=== PATIENT | female | born 1985 | race Caucasian/White ===

== ENCOUNTER 2019-01-03 16:11 | Emergency (ER) | payer OTHER ==
[2019-01-03] MEDS ORDERED: Silver Sulfadiazine 1% Crm 50 GM Tube TOP ONE (17:09)
--- NOTE | 2019-01-03 17:17 | EDM.PDOC ---
ED HPI GENERAL MEDICAL PROBLEM - General Chief Complaint: Burn Stated Complaint: BURN TO RIGHT FOOT Time Seen by Provider: 01/03/19 16:17 Source of Information: Reports: Patient History Limitations: Reports: No Limitations - History of Present Illness INITIAL COMMENTS - FREE TEXT/NARRATIVE: HISTORY AND PHYSICAL: History of present illness: Patient is a 33-year-old female presents to the ED today with concern of a few degrees le on the tops of her right toes. Patient states the areas have small blisters that have formed. Patient states this occurred earlier today at work when grease had splattered on her shoe. Patient states she immediately removed her shoe and there are some small burn desai on the top of her dose. Patient states she has full use of foot without any difficulties. Patient denies fever, chills, chest pain, shortness of breath, or cough. Denies headache, neck stiff ness, change in vision, syncope, or near syncope. Denies nausea, vomiting, abdominal pain, diarrhea, constipation, or dysuria. Has not noted any blood in urine or stool. Patient has been eating and drinking appropriately. Review of systems: As per history of present illness and below otherwise all systems reviewed and negative. Past medical history: As per history of present illness and as reviewed below otherwise noncontributory. Surgical history: As per history of present illness and as reviewed below otherwise noncontributory. Social history: See social history for further information Family history: As per history of present illness and as reviewed below otherwise noncontributory. Physical exam: General: Patient is alert, oriented, and in no acute distress. Patient sitting comfortably on exam table. HEENT: Atraumatic, normocephalic, pupils equal and reactive bilaterally, negative for conjunctival pallor or scleral icterus, mucous membranes moist, TMs normal bilaterally, throat clear, neck supple, nontender, trachea midline. No drooling or trismus noted. No meningeal signs. No hot potato voice noted. Lungs: Clear to auscultation, breath sounds equal bilaterally, chest nontender. Heart: S1S2, regular rate and rhythm without overt murmur Abdomen: Soft, nondistended, nontender. Negative for masses or hepatosplenomegaly. Negative for costovertebral tenderness. Pelvis: Stable nontender. Genitourinary: Deferred. Rectal: Deferred. Skin: Intact, warm, dry. No lesions or rashes noted. Extremities: Negative for cords or calf pain. Neurovascular unremarkable. <1% BSA. There are a few scattered partial thickness le to the top of toes on right foot, non circumferential and not involving nailbeds. No areas of open skin. 1-2 (<1cm) blister formation on toe 1 and toe 2. Neuro: Awake, alert, oriented. Cranial nerves II through XII unremarkable. Cerebellum unremarkable. Motor and sensory unremarkable throughout. Exam nonfocal. Notes: Discussed the importance for follow-up with the primary care provider. Voices understanding and is agreeable to plan of care. Denies any further questions or concerns at this time. Diagnostics: None Therapeutics: Silvadene with nonstick sterile dressing Prescription: None Impression: Partial thickness burn of toes, right Plan: 1. Apply cream provided to you today to the area twice daily with dressing changes for the next 2-3 days. Do not pop the blisters as discussed. 2. You can alternate ibuprofen and Tylenol as directed for pain and discomfort. 3. Follow up with her primary care provider as discussed. 4. Return to the ED as needed and as discussed Definitive disposition and diagnosis as appropriate pending reevaluation and review of above. Right Foot Pain Score (Numeric/FACES): 3 - Related Data Allergies Allergy/AdvReac Type Severity Reaction Status Date / Time cephalexin [From Keflex] Allergy Rash Verified 01/03/19 16:48 Penicillins Allergy Rash Verified 01/03/19 16:48 Home Meds: Home Meds Montelukast Sodium [Singulair] 10 mg PO DAILY 01/03/19 [History] metFORMIN [Glucophage XR] 500 mg PO BID 01/03/19 [History] Past Medical History [employer] History: Reports: Polycystic Ovaries - Past Surgical History GI Surgical History: Reports: Cholecystectomy Social & Family History - Family History Family Medical History: Noncontributory - Tobacco Use Smoking Status *Q: Former Smoker Used Tobacco, but Quit: Yes Month/Year Tobacco Last Used: 2008 - Recreational Drug Use Recreational Drug Use: No ED ROS GENERAL - Review of Systems Review Of Systems: ROS reveals no pertinent complaints other than HPI. ED EXAM, BURN/SMOKE INHALATION - Physical Exam Exam: See Below (see dictation) Course - Vital Signs Last Recorded V/S: Last Vital Signs Temp 36.8 C 01/03/19 16:41 Pulse 66 01/03/19 16:41 Resp 18 01/03/19 16:41 BP 137/75 01/03/19 16:41 Pulse Ox 97 01/03/19 16:41 - Orders/Labs/Meds Orders: Active Orders 24 hr Category Date Time Status Communication Order [RC] STAT Care 01/03/19 17:11 Ordered Meds: Medications Discontinued Medications Generic Name Dose Route Start Last Admin Trade Name Eryn PRN Reason Stop Dose Admin Silver Sulfadiazine 50 gm 01/03/19 17:09 Silvadene 1% Cream 50 Gm TOP 01/03/19 17:10 ONETIME ONE Departure - Departure Time of Disposition: 17:16 Disposition: Home, Self-Care 01 Clinical Impression: Burn of toe of right foot Qualifiers: Encounter type: initial encounter Burn degree: partial thickness (2nd degree) Qualified Code(s): T25.231A - Burn of second degree of right toe(s) (nail), initial encounter - Discharge Information Instructions: Burn Care, Adult, [place] Referrals: Eloisa Collier DO [Primary Care Provider] - Additional Instructions: The following information is given to patients seen in the emergency department who are being discharged to home. This information is to outline your options for follow-up care. We provide all patients seen in our emergency department with a follow-up referral. The need for follow-up, as well as the timing and circumstances, are variable depending upon the specifics of your emergency department visit. If you don't have a primary care physician on staff, we will provide you with a referral. We always advise you to contact your personal physician following an emergency department visit to inform them of the circumstance of the visit and for follow-up with them and/or the need for any referrals to a consulting specialist. The emergency department will also refer you to a specialist when appropriate. This referral assures that you have the opportunity for follow-up care with a specialist. All of these measure are taken in an effort to provide you with optimal care, which includes your follow-up. Under all circumstances we always encourage you to contact your private physician who remains a resource for coordinating your care. When calling for follow-up care, please make the office aware that this follow-up is from your recent emergency room visit. If for any reason you are refused follow-up, please contact the [facility] Emergency Department at and asked to speak to the emergency department charge nurse. [facility] [address] [place] [address] [address] 1. Apply cream provided to you today to the area twice daily with dressing changes for the next 2-3 days. Do not pop the blisters as discussed. 2. You can alternate ibuprofen and Tylenol as directed for pain and discomfort. 3. Follow up with her primary care provider as discussed. 4. Return to the ED as needed and as discussed - My Orders Last 24 Hours: My Active Orders 01/03/19 17:11 Communication Order [RC] STAT - Assessment/Plan Last 24 Hours: My Active Orders 01/03/19 17:11 Communication Order [RC] STAT
== END 2019-01-03 17:32 | disposition home or self-care (01) ==
LOC: MW.ED 16:11
DX: T25.231A Burn of second degree of right toe(s) (nail), initial encounter (principal); T31.0 Burns involving less than 10% of body surface; Z87.891 Personal history of nicotine dependence; Z79.899 Other long term (current) drug therapy; Z88.0 Allergy status to penicillin; Z88.1 Allergy status to other antibiotic agents; X12.XXXA Contact with other hot fluids, initial encounter; Y99.0 Civilian activity done for income or pay
CPT/HCPCS: 16020; 99283; A9270

== ENCOUNTER 2019-08-22 09:08 | Emergency (ER) | payer MEDICAID ==
[2019-08-22] MEDS ORDERED: Sodium Chloride 0.9% 1,000 ML IV ONE (09:15)
--- NOTE | 2019-08-22 09:28 | EDM.PDOC ---
ED HPI GENERAL MEDICAL PROBLEM - General Chief Complaint: General Stated Complaint: WEAKNESS Time Seen by Provider: 08/22/19 09:28 Source of Information: Reports: Patient - History of Present Illness INITIAL COMMENTS - FREE TEXT/NARRATIVE: HISTORY AND PHYSICAL: History of present illness: [Presents with dizziness over the last week she was seen initially and sent to OB she is 27 weeks with no fever nausea vomiting chills sweats chest pain shortness breath headache or palpitation no bowel or urine symptoms I can induce dizziness with head turned to the right as well as looking up, clearly a positional component ] Review of systems: As per history of present illness and below otherwise all systems reviewed and negative. Past medical history: As per history of present illness and as reviewed below otherwise noncontributory. Surgical history: As per history of present illness and as reviewed below otherwise noncontributory. Social history: No reported history of drug or alcohol abuse. Family history: As per history of present illness and as reviewed below otherwise noncontributory. Physical exam: HEENT: Atraumatic, normocephalic, pupils reactive, negative for conjunctival pallor or scleral icterus, mucous membranes moist, throat clear, neck supple, nontender, trachea midline. Lungs: Clear to auscultation, breath sounds equal bilaterally, chest nontender. Heart: S1S2, regular, negative for clicks, rubs, or JVD. Abdomen: Soft, nondistended, nontender. Negative for masses or hepatosplenomegaly. Negative for costovertebral tenderness. Pelvis: Stable nontender. Genitourinary: Deferred. Rectal: Deferred. Extremities: Atraumatic, negative for cords or calf pain. Neurovascular unremarkable. Neuro: Awake, alert, oriented. Cranial nerves II through XII unremarkable. Cerebellum unremarkable. Motor and sensory unremarkable throughout. Exam nonfocal. Diagnostics: [CBC CMP UA hCG Nonstress testing ] Therapeutics: phenergan macrobid She will follow up with her OB nurses have schedule appointment for tomorrow Dr. Friend ] Impression: [ 7 weeks with IUP-see nonstress testing GI Mild dehydration Positional vertigo ] Definitive disposition and diagnosis as appropriate pending reevaluation and review of above. headache Pain Score (Numeric/FACES): 8 - Related Data Allergies Allergy/AdvReac Type Severity Reaction Status Date / Time cefdinir [From Omnicef] Allergy Hives Verified 08/22/19 09:15 cephalexin [From Keflex] Allergy Rash Verified 08/22/19 09:15 Penicillins Allergy Rash Verified 08/22/19 09:15 vancomycin Allergy Airway Verified 08/22/19 09:15 Tightness Home Meds: Home Meds Montelukast Sodium [Singulair] 10 mg PO DAILY 01/03/19 [History] Past Medical History [employer] History: Reports: Polycystic Ovaries - Infectious Disease History Infectious Disease History: Reports: Chicken Pox - Past Surgical History GI Surgical History: Reports: Cholecystectomy Social & Family History - Family History Family Medical History: Noncontributory - Tobacco Use Smoking Status *Q: Never Smoker - Recreational Drug Use Recreational Drug Use: No ED ROS GENERAL - Review of Systems Review Of Systems: See Below ED EXAM, GENERAL - Physical Exam Exam: See Below Course - Vital Signs Last Recorded V/S: Last Vital Signs Temp 97.8 F 08/22/19 09:15 Pulse 86 08/22/19 09:15 Resp 18 08/22/19 09:15 BP 134/83 08/22/19 09:15 Pulse Ox 97 08/22/19 09:15 - Orders/Labs/Meds Orders: Active Orders 24 hr Category Date Time Status NST [ Non Stress Test] [RC] PER UNIT ROUTINE Care 08/22/19 09:54 Active CULTURE STREP A CONFIRMATION [RM] Stat Lab 08/22/19 09:23 Results CULTURE URINE [RM] Stat Lab 08/22/19 09:35 Received STREP SCRN A RAPID W CULT CONF [RM] Stat Lab 08/22/19 09:23 Results Labs: Laboratory Tests 08/22/19 08/22/19 08/22/19 Range/Units 09:25 09:25 09:35 WBC 11.78 H (4.0-11.0) K/uL RBC 4.03 L (4.30-5.90) M/uL Hgb 11.7 L (12.0-16.0) g/dL Hct 35.1 L (36.0-46.0) % MCV 87.1 (80.0-98.0) fL MCH 29.0 (27.0-32.0) pg MCHC 33.3 (31.0-37.0) g/dL RDW Std Deviation 41.4 (28.0-62.0) fl RDW Coeff of Kelly 13 (11.0-15.0) % Plt Count 259 (150-400) K/uL MPV 9.40 (7.40-12.00) fL Neut % (Auto) 80.8 H (48.0-80.0) % Lymph % (Auto) 13.0 L (16.0-40.0) % Saline % (Auto) 5.5 (0.0-15.0) % Eos % (Auto) 0.6 (0.0-7.0) % Baso % (Auto) 0.1 (0.0-1.5) % Neut # (Auto) 9.5 H (1.4-5.7) K/uL Lymph # (Auto) 1.5 (0.6-2.4) K/uL Saline # (Auto) 0.7 (0.0-0.8) K/uL Eos # (Auto) 0.1 (0.0-0.7) K/uL Baso # (Auto) 0.0 (0.0-0.1) K/uL Nucleated RBC % 0.0 /100WBC Nucleated RBCs # 0 K/uL Sodium 135 L (136-145) mmol/L Potassium 3.6 (3.5-5.1) mmol/L Chloride 101 (98-107) mmol/L Carbon Dioxide 21.4 (21.0-32.0) mmol/L BUN 7 (7.0-18.0) mg/dL Creatinine 0.6 (0.6-1.0) mg/dL Est Cr Clr Drug Dosing 120.00 mL/min Estimated GFR (MDRD) > 60.0 ml/min Glucose 86 (74-106) mg/dL Calcium 8.6 (8.5-10.1) mg/dL Total Bilirubin 0.2 (0.2-1.0) mg/dL AST 13 L (15-37) IU/L ALT 19 (14-63) IU/L Alkaline Phosphatase 66 (46-116) U/L Total Protein 7.4 (6.4-8.2) g/dL Albumin 2.8 L (3.4-5.0) g/dL Globulin 4.6 H (2.6-4.0) g/dL Albumin/Globulin Ratio 0.6 L (0.9-1.6) Urine Color YELLOW Urine Appearance CLEAR Urine pH 6.5 (5.0-8.0) Ur Specific [place] 1.020 (1.001-1.035) Urine Protein NEGATIVE (NEGATIVE) mg/dL Urine Glucose (UA) NEGATIVE (NEGATIVE) mg/dL Urine Ketones NEGATIVE (NEGATIVE) mg/dL Urine Occult Blood NEGATIVE (NEGATIVE) Urine Nitrite NEGATIVE (NEGATIVE) Urine Bilirubin NEGATIVE (NEGATIVE) Urine Urobilinogen 0.2 (<2.0) EU/dL Ur Leukocyte Esterase SMALL H (NEGATIVE) Urine RBC 0-3 (0-2/HPF) Urine WBC 5-10 (0-5/HPF) Ur Epithelial Cells MODERATE (NONE-FEW) Urine Bacteria 2+ H (NEGATIVE) Meds: Medications Discontinued Medications Generic Name Dose Route Start Last Admin Trade Name Freq PRN Reason Stop Dose Admin Sodium Chloride 1,000 mls @ 999 mls/hr 08/22/19 09:15 08/22/19 09:38 Normal Saline IV 08/22/19 10:15 999 mls/hr STAT ONE Administration Departure - Departure Time of Disposition: 11:03 Disposition: Home, Self-Care 01 Condition: Good Clinical Impression: Vertigo, UTI (urinary tract infection) - Discharge Information Referrals: Adonis Friend MD [Physician] - 08/23/19 8:45 am Forms: ED Department Discharge Additional Instructions: Medication as prescribed Return if symptoms persist or worsen Follow-up with OB as scheduled , appointment provided with Dr. Phuc Johnson [facility] [place] [address] The following information is given to patients seen in the emergency department who are being discharged to home. This information is to outline your options for follow-up care. We provide all patients seen in our emergency department with a follow-up referral. The need for follow-up, as well as the timing and circumstances, are variable depending upon the specifics of your emergency department visit. If you don't have a primary care physician on staff, we will provide you with a referral. We always advise you to contact your personal physician following an emergency department visit to inform them of the circumstance of the visit and for follow-up with them and/or the need for any referrals to a consulting specialist. The emergency department will also refer you to a specialist when appropriate. This referral assures that you have the opportunity for follow-up care with a specialist. All of these measure are taken in an effort to provide you with optimal care, which includes your follow-up. Under all circumstances we always encourage you to contact your private physician who remains a resource for coordinating your care. When calling for follow-up care, please make the office aware that this follow-up is from your recent emergency room visit. If for any reason you are refused follow-up, please contact the [facility] emergency department at and asked to speak to the emergency department charge nurse. Sepsis Event Note - Evaluation Sepsis Screening Result: No Definite Risk - Focused Exam Vital Signs: Vital Signs Temp Pulse Resp BP Pulse Ox 08/22/19 09:15 97.8 F 86 18 134/83 97 Date Exam was Performed: 08/22/19 Time Exam was Performed: 11:03 - My Orders Last 24 Hours: My Active Orders 08/22/19 09:23 CULTURE STREP A CONFIRMATION [RM] Stat STREP SCRN A RAPID W CULT CONF [RM] Stat 08/22/19 09:35 CULTURE URINE [RM] Stat 08/22/19 09:54 NST [ Non Stress Test] [RC] PER UNIT ROUTINE - Assessment/Plan Last 24 Hours: My Active Orders 08/22/19 09:23 CULTURE STREP A CONFIRMATION [RM] Stat STREP SCRN A RAPID W CULT CONF [RM] Stat 08/22/19 09:35 CULTURE URINE [RM] Stat 08/22/19 09:54 NST [ Non Stress Test] [RC] PER UNIT ROUTINE
[2019-08-22 10:25] LABS: BLOOD UREA NITROGEN,BUN 7 mg/dL (7.0-18.0); CARBON DIOXIDE,CO2 21.4 mmol/L (21.0-32.0); CHLORIDE,CL 101 mmol/L (98-107); GLUCOSE RANDOM 86 mg/dL (74-106); POTASSIUM,K 3.6 mmol/L (3.5-5.1); SODIUM,NA 135 mmol/L (136-145)
== END 2019-08-22 11:16 | disposition home or self-care (01) ==
LOC: MW.ED 09:08
DX: O99.351 Diseases of the nervous system complicating pregnancy, first trimester (principal); H81.10 Benign paroxysmal vertigo, unspecified ear; O23.41 Unspecified infection of urinary tract in pregnancy, first trimester; O99.281 Endocrine, nutritional and metabolic diseases complicating pregnancy, first trimester; E86.0 Dehydration; Z88.1 Allergy status to other antibiotic agents; Z88.0 Allergy status to penicillin; Z3A.01 Less than 8 weeks gestation of pregnancy
CPT/HCPCS: 36415; 80053; 81001; 85025; 87081; 87086; 87804; 87880; 96360; 99284; J7030; 99283

== ENCOUNTER 2019-09-06 21:26 | Emergency (ER) | payer MEDICAID ==
[2019-09-06 22:47] LABS: BLOOD UREA NITROGEN,BUN 5 mg/dL (7.0-18.0); CARBON DIOXIDE,CO2 24.7 mmol/L (21.0-32.0); CHLORIDE,CL 102 mmol/L (98-107); GLUCOSE RANDOM 80 mg/dL (74-106); POTASSIUM,K 3.6 mmol/L (3.5-5.1); SODIUM,NA 137 mmol/L (136-145)
== END 2019-09-07 01:40 | disposition left against medical advice (07) ==
LOC: MW.ED 21:26
DX: Z53.21 Procedure and treatment not carried out due to patient leaving prior to being seen by health care provider (principal)
CPT/HCPCS: 36415; 80053; 81003; 85025

== ENCOUNTER 2019-09-12 10:53 | Emergency (ER) | payer MEDICAID ==
[2019-09-12] MEDS ORDERED: Metoclopramide 10 MG/2 ML SDV IVPUSH ONE (11:50)
[2019-09-12] MEDS ORDERED: Sodium Chloride 0.9% 1,000 ML IV ONE (11:50)
[2019-09-12] MEDS ORDERED: diphenhydrAMINE 50 MG/ML SDV IVPUSH ONE (11:50)
[2019-09-12] MEDS ORDERED: Acetaminophen 1,000 MG in Premix Bag 1 BAG IV ONE (11:50)
[2019-09-12] MEDS ORDERED: Acetaminophen 500 MG Tab PO ONE (12:05)
[2019-09-12 13:10] LABS: BLOOD UREA NITROGEN,BUN 6 mg/dL (7.0-18.0); CARBON DIOXIDE,CO2 26.8 mmol/L (21.0-32.0); CHLORIDE,CL 103 mmol/L (98-107); GLUCOSE RANDOM 87 mg/dL (74-106); POTASSIUM,K 4.4 mmol/L (3.5-5.1); SODIUM,NA 137 mmol/L (136-145)
--- NOTE | 2019-09-12 15:40 | MR ---
MRI brain Technique: Multiple axial sections through the brain were obtained. Intravenous contrast was not utilized. Technique: T1 sagittal; T1 coronal; T1, T2, FLAIR and diffusion axial Findings: Normal signal void is seen within the sagittal sinus and transverse sinus. Slight mucosal thickening, most likely representing retention cyst is noted within the right maxillary sinus measuring 1.6 cm. Ventricles along with basal cisterns and sulci over convexities are within normal limits. No abnormal signal is seen within the brain parenchyma. No midline shift or mass effect is appreciated. No acute diffusion abnormalities are seen. Impression: 1. Small retention cyst within right maxillary sinus. 2. Other portions of the MRI study the brain appear unremarkable. No acute abnormality is appreciated. Diagnostic code #2 This report was dictated in [place] Standard Time
--- NOTE | 2019-09-12 16:07 | EDM.PDOC ---
ED [facility] GENERAL MEDICAL PROBLEM - General Chief Complaint: Headache Stated Complaint: OB COMPLICATIONS Time Seen by Provider: 09/12/19 11:00 - History of Present Illness INITIAL COMMENTS - FREE TEXT/NARRATIVE: HPI 34-year-old at ~30 weeks gestation presents for evaluation of one month of poorly characterized waxing and waning headache that is predominant frontal and new in nature (patient reports a very minor headache history), accompanied by poorly characterized sensation of movement (patient describes as dizziness, vertigo). As with a clearly identifiable provoking or relieving factors. * Denies changes in vision or hearing, fevers, neck stiffness, rashes, neck pain , temporal pain, jaw pain with chewing, dental pain, minor neck trauma, chiropractic manipulation, or head trauma. * Denies anticoagulation or hypercoaguable history. * No family members with similar symptoms. CO detectors in house. Unable to identify any higher risk exposures to possible carbon monoxide. 1. OB US 08/30/19: normal cervical length at 4.1 cm with close internal officer. Fetus is a [place] line. 2. ED 09/06/19: patient presented with a cc dizziness for ~1 month. 3. ED 08/22/19: patient with poorly characterize headache and vertiginous symptoms, appears to have improved with IV hydration. Patient discharged with treatment instructions for UTI. M/S/F/SocHx notable for: please see HPI; remainder reviewed with patient and in chart. ROS: Negative constitutional, eye, cardiovascular, pulmonary, GI, , MSK, skin , neurologic, psychiatric, endocrine unless noted in the HPI. Exam HR 89, RR 20, BP 114/62, T 36.7C, SaO2 97% on room air. Gen: Pleasant, non-toxic appearing, resting comfortably. HEENT: NC, AT, TMs clear bilaterally without effusions, erythema, or lesions, preauricular, pinna, and external canal skin without lesions. Dentition intact without visible caries. No frontal or maxillary sinus TTP. Temples without TTP bilaterally, equal 2+ temporal artery pulses. No paraspinal posterior neck pain. Resp: clear to auscultation bilaterally. Card: RRR GI: NT/ND : Deferred MSK: No visible deformities, strength and tone WNL. Skin: Normal color with no visible lesions. Neuro: alert and oriented 3, no facial asymmetry, no gaze preference, no slurring of speech. CN II-III: pupils equal and reactive (->2mm bilaterally); III, IV, : EOMI, V1-V3: sensation to touch bilaterally intact; VII: no facial asymmetry (frown / smile); VIII: no nystagmus; X: phonation intact, uvula midline; XI: trapezius 5/5 bilaterally, XII: tongue midline. Psych: Mood and affect appropriate. Labs / Imaging (pertinent): WBC 9.6, HB 11.2, d-dimer 0.56, sodium 137, potassium 4.4, AST 19, ALT 22, alkaline phosphatase 83. EKG: SR 70 bpm, no ST segment elevations or depressions, no LBBB. DC 134 ms, QRS 90 ms, QTc 422 ms. MRI brain: small retention cyst within right maxillary sinus. MDM Previous chart, nursing note, and vitals reviewed. A: 34-year-old at ~30 weeks gestation presents for evaluation of one month of poorly characterized waxing and waning headache that is predominant frontal and new in nature (patient reports a very minor headache history), accompanied by poorly characterized sensation of movement (patient describes as dizziness, vertigo). DDx: migraine / tension headache, cluster headache, sentinel bleed/SAH, infection (OFFICE AGENT vs FIORE secondary to non-OFFICE AGENT focal infection), tumor/mass effect, hypertensive encephalopathy, glaucoma or iritis, idiopathic intracranial hypertension, cavernous sinus thrombosis, temporal arteritis. Evaluation: * Migraine / tension headache - suspect a migraine given the consistency of symptoms with prior headaches and the relative exclusion of the remainder of the differential. * Cluster - doubt cluster headache given the absence of unilateral symptoms, eye watering, swelling, or nasal congestion. * [place]way bleed/SAH - Doubt given gradual onset. Furthermore imaging is unremarkable. * Infection - Given lack of rash, meningismus, or fever; doubt meningitis. Similarly the history and exam are without evidence of acute otitis media, sinusitis, dental abscesses or clinically significant dental caries. * Mass - no evidence by imaging. * Hypertensive encephalopathy - BP within the brain's autoregulatory zone. * Glaucoma or iritis - As the patient is without reported vision changes, eye pain, and an occular exam without increases in pain on pupillary constriction further evaluation was not pursued. * Idiopathic Intracranial Hypertension - unlikely given the lack of visual symptoms, short duration of symptoms, lack of worsening with valsalva, or more prominent morning symptoms. [* Thrombosis - patient felt to be low to moderate pretest probability, a d- dimer was obtained, while this was mildly elevated is unclear if this is secondary to gestation versus reflecting an intracranial thrombosis, subsequent MRI (requested MRI/MRV) without evidence of abnormality. As such consider this to be effectively excluded. * Temporal Arteritis - given lack of temporally localized headache, temporal tenderness or decreased temporal artery pulse, absent history of jaw claudication or vision changes; doubt. * Preeclampsia - blood pressure within acceptable limits, no features consistent with preeclampsia. ED Course: 1 L NS, 25 mg diphenhydramine, 10 mg Reglan, and 1 g acetaminophen given for headache treatment. Patient with significant improvement. Disposition: discharge with [facility] follow-up recommended. Impression: headache, lightheadedness. headache Pain Score (Numeric/FACES): 5 - Related Data Allergies Allergy/AdvReac Type Severity Reaction Status Date / Time cefdinir [From Omnicef] Allergy Hives Verified 09/12/19 11:00 cephalexin [From Keflex] Allergy Rash Verified 09/12/19 11:00 Penicillins Allergy Rash Verified 09/12/19 11:00 vancomycin Allergy Airway Verified 09/12/19 11:00 Tightness Home Meds: Home Meds Mv-Mn/Iron/FA/Herbal/Digestive [ One Tablet] 1 tab PO DAILY 09/06/19 [ History] Past Medical History HEENT History: Reports: None Cardiovascular History: Reports: None Respiratory History: Reports: None Genitourinary History: Reports: None [facility] History: Reports: Polycystic Ovaries Musculoskeletal History: Reports: None Psychiatric History: Reports: None Endocrine/Metabolic History: Reports: None Hematologic History: Reports: None Dermatologic History: Reports: None - Infectious Disease History Infectious Disease History: Reports: Chicken Pox, Shingles - Past Surgical History GI Surgical History: Reports: Cholecystectomy Social & Family History - Family History Family Medical History: Noncontributory - Tobacco Use Smoking Status *Q: Never Smoker - Caffeine Use Caffeine Use: Reports: Coffee - Recreational Drug Use Recreational Drug Use: No ED ROS GENERAL - Review of Systems Review Of Systems: See Below ED EXAM, GENERAL - Physical Exam Exam: See Below Course - Vital Signs Last Recorded V/S: Last Vital Signs Temp 36.7 C 09/12/19 10:56 Pulse 86 09/12/19 13:40 Resp 16 09/12/19 13:40 BP 133/76 09/12/19 13:40 Pulse Ox 97 09/12/19 13:40 - Orders/Labs/Meds Orders: Active Orders 24 hr Category Date Time Status EKG Documentation Completion [RC] STAT Care 09/12/19 11:50 Active Labs: Laboratory Tests 09/12/19 09/12/19 09/12/19 Range/Units 12:20 12:20 12:20 WBC 9.57 (4.0-11.0) K/uL RBC 3.89 L (4.30-5.90) M/uL Hgb 11.2 L (12.0-16.0) g/dL Hct 34.1 L (36.0-46.0) % MCV 87.7 (80.0-98.0) fL MCH 28.8 (27.0-32.0) pg MCHC 32.8 (31.0-37.0) g/dL RDW Std Deviation 41.4 (28.0-62.0) fl RDW Coeff of Kelly 13 (11.0-15.0) % Plt Count 260 (150-400) K/uL MPV 9.60 (7.40-12.00) fL Neut % (Auto) 77.3 (48.0-80.0) % Lymph % (Auto) 15.0 L (16.0-40.0) % [place]well % (Auto) 7.0 (0.0-15.0) % Eos % (Auto) 0.6 (0.0-7.0) % Baso % (Auto) 0.1 (0.0-1.5) % Neut # (Auto) 7.4 H (1.4-5.7) K/uL Lymph # (Auto) 1.4 (0.6-2.4) K/uL [place] # (Auto) 0.7 (0.0-0.8) K/uL Eos # (Auto) 0.1 (0.0-0.7) K/uL Baso # (Auto) 0.0 (0.0-0.1) K/uL Nucleated RBC % 0.0 /100WBC Nucleated RBCs # 0 K/uL D-Dimer, Quantitative 0.56 H (0.0-0.50) mg/L FEU Sodium 137 (136-145) mmol/L Potassium 4.4 (3.5-5.1) mmol/L Chloride 103 (98-107) mmol/L Carbon Dioxide 26.8 (21.0-32.0) mmol/L BUN 6 L (7.0-18.0) mg/dL Creatinine 0.5 L (0.6-1.0) mg/dL Est Cr Clr Drug Dosing 144.00 mL/min Estimated GFR (MDRD) > 60.0 ml/min Glucose 87 (74-106) mg/dL Calcium 9.4 (8.5-10.1) mg/dL Magnesium 2.0 (1.8-2.4) mg/dL Total Bilirubin 0.1 L (0.2-1.0) mg/dL AST 19 (15-37) IU/L ALT 22 (14-63) IU/L Alkaline Phosphatase 83 (46-116) U/L Total Protein 7.5 (6.4-8.2) g/dL Albumin 2.7 L (3.4-5.0) g/dL Globulin 4.8 H (2.6-4.0) g/dL Albumin/Globulin Ratio 0.6 L (0.9-1.6) Meds: Medications Discontinued Medications Generic Name Dose Route Start Last Admin Trade Name Freq PRN Reason Stop Dose Admin Acetaminophen 1,000 mg 09/12/19 12:05 09/12/19 12:33 Tylenol Extra Strength PO 09/12/19 12:06 1,000 mg ONETIME ONE Administration Diphenhydramine HCl 25 mg 09/12/19 11:50 09/12/19 12:26 Benadryl IVPUSH 09/12/19 11:51 25 mg ONETIME ONE Administration Acetaminophen 1,000 mg/ Premix 100 mls @ 400 mls/hr 09/12/19 11:50 09/12/19 12:06 IV 09/12/19 12:04 Not Given NOW ONE Sodium Chloride 1,000 mls @ 1,000 mls/hr 09/12/19 11:50 09/12/19 12:17 Normal Saline IV 09/12/19 12:49 1,000 mls/hr .Bolus ONE Administration Metoclopramide HCl 10 mg 09/12/19 11:50 09/12/19 12:28 Reglan IVPUSH 09/12/19 11:51 10 mg ONETIME ONE Administration Departure - Departure Time of Disposition: 16:06 Disposition: Home, Self-Care 01 Clinical Impression: Headache - Discharge Information Referrals: PCP,Unobtain [Primary Care Provider] - Additional Instructions: You were in seen in the [facility] Emergency Department for evaluation of a headache and lightheadedness. At the time of your evaluation no significant abnormalities were noted. Please follow- up with your [facility]ER within 48 hours. Please read and follow all of the instructions below. Please follow up with your primary care physician as needed. When calling for follow-up care, please make the office aware that this follow-up is from your recent emergency room visit. If for any reason you are refused follow-up, please contact the [facility] Emergency Department at and asked to speak to the emergency department charge nurse. Your care today was limited to identifying and treating emergent medical problems only. Many people have subtle differences in their test results that require follow up with their outpatient physician(s) to correctly determine if this represents a normal variation or concerning abnormality with respect to your specific health. The care given to you today was limited to identifying and treating emergent medical problems - you need to request a copy of all of your medical records from today's visit and follow up with your outpatient physician(s) to review both today's visit and your overall health. If you have any new symptoms or if you are at all concerned about your health please return immediately to the emergency department. Prescriptions: If you are uninsured or have financial difficulties with filling your prescription(s), you may consider using a free pharmacy discount service such as [employer] ([employer]) or [employer] ([employer]). These services allow you to search for a medication on your phone (or computer) and obtain a coupon that usually has a significant discount from the list coronado at a pharmacy. Your physician as well as [facility] does not have a financial relationship with either of these services. You may also wish to speak with your physician to determine if lower cost prescriptions are possible. Obtaining primary care: 1. [facility] provides pediatrics (children), family medicine (children, adults, and some obstetrical care), and internal medicine (adults). Further specialty care is also available. Same day appointments are available. They may be contacted at [phone] and are open Reinaldo through Monday 8 AM to 5 PM. The [facility] are located at [facility], [address], [place] [address]. 2. [facility] offers family medicine, internal medicine, [facility], and further specialty care. [facility] may be contacted at [phone]. [facility] is located at [address] [facility] [address]. 3. If you have health insurance, please also contact your insurer for a list of accepting providers under your policy, you may contact these providers for further health care. Occupational health: Work related injuries may consider following up with [facility], . Occupational health services are located at [facility] [address] [place] [address] and are open Monday through Monday from 7: 30 am to 5:00 pm. Obstetrical and Gynecological Care: [facility], , Monday through Monday 8 AM to [address] [place] [address]. Eyecare: If you have an eye injury you should follow up with your second worker or with [facility], at [phone] or [phone] , they are located at [address] [place] [address]. Dental Care Flakito Lau DDS. [address] [facility], [place], [place]. Ph. [phone] Colton Lau DDS MS. [address] [facility] [address], [place], [place]. Ph. Jet Mills DDS. 10 09/[address] [place] [address]. Ph. [phone] Paul Malik DDS. [address] [facility] [address] [place], [place]. Ph. [phone] Flako Mullins DDS PC. [address] [place], [place]. Ph. [phone] Valeri Kobe Keshav DDS. [address] [facility]. Ph. [phone] [facility]. [address] [place], [place]. Ph. [phone] [facility]. [address], [place]. Ph. [phone] [facility] [address] [place] [address]. Ph. [phone] [facility]. [address] [place] [address] [address] [place], [place]. Ph. [facility]. [address], [place]. Ph. [phone] Headache You were seen in the emergency department for evaluation and treatment of a headache. There are many causes for headaches. Most are painful but do not threaten your health. However there are some types of headaches that can be life threatening. Please return to the emergency department if you develop any of the following: * Your headache worsens, becomes severe, or you have nausea or vomiting. * Fever greater than 100.5 degrees Fahrenheit. * You have neck stiffness. * Changes in vision or hearing. * You have new weakness, numbness, or decreased sensation. * You have dizziness or difficulty walking * You feel faint or like you will pass out. Please follow up with your primary care doctor if your symptoms continue or do not improve. If you have recurrent headaches, your primary care physician may be able to prescribe medications that abort headaches or refer you to a neurologist for further evaluation and work up of your headaches. Home care instructions: * Keep all follow-up appointments with your caregiver or any specialist referral. * Lie down in a dark, quiet room when you have a headache. Keep a headache journal to find out what may trigger your migraine headaches. For example, write down: * What you eat and drink. * How much sleep you get. * Any change to your diet or medicines. * Try massage or other relaxation techniques. * Put ice packs or heat on the head and neck. Use these 3 to 4 times per day for 15 to 20 minutes each time, or as needed. * Limit stress. * Sit up straight, and do not tense your muscles. * Quit smoking if you smoke. * Limit alcohol use. * Decrease the amount of caffeine you drink, or stop drinking caffeine. * Eat and sleep on a regular schedule. * Get 7 to 9 hours of sleep, or as recommended by your caregiver. * Keep lights dim if bright lights bother you and make your headaches worse. You make take over the counter Acetaminophen (Tylenol) and Ibuprofen (Motrin or Aleve) as directed below for relief of pain. * Take 600 mg of ibuprofen (three 200 mg tablets) with a glass of water every 6- 8 hours as needed for pain or fever. Do not take if , allergic to ibuprofen, or if you have severe kidney disease. * Take 1,000 mg of acetaminophen (two 500 mg tablets) with a glass of water every 6-8 hours as needed for pain. Do not take up allergic to acetaminophen. If you have liver disease do not take more than 2000 mg in 24 hours. * You can take these medications at the same time or on separate schedules. * Do not take for more than 10 days. * Do not take with alcohol or other acetaminophen containing medications. * This medication may cause a mildly upset stomach, if so take it with a small snack. Stop taking it if you have persistent abdominal pain, heartburn, or any stomach pain. Do not take this medication if you have known ulcers. * Please read the warnings at the end of this document regarding these medications. IBUPROFEN WARNING: This drug may infrequently cause serious (rarely fatal) bleeding from the stomach or intestines. Also, related drugs rarely have caused blood clots to form, resulting in heart attacks and strokes. This medication might also rarely cause similar problems. Talk to your doctor or pharmacist about the benefits and risks of treatment, as well as other possible medication choices. If you notice any of the following rare but very serious side effects, stop taking ibuprofen and seek immediate medical attention: black stools, persistent stomach/abdominal pain, vomit that looks like coffee grounds, chest pain, weakness on one side of the body, sudden vision changes, slurred speech. IBUPROFEN SIDE EFFECTS: Upset stomach, nausea, vomiting, heartburn, headache, diarrhea, constipation, drowsiness, and dizziness may occur. If any of these effects persist or worsen, notify your doctor or pharmacist promptly. If your doctor has directed you to use this medication, remember that he or she has judged that the benefit to you is greater than the risk of side effects. Many people using this medication do not have serious side effects. Tell your doctor immediately if any of these serious side effects occur: stomach pain, swelling of the hands or feet, sudden or unexplained weight gain, ringing in the ears ( tinnitus). Tell your doctor immediately if any of these unlikely but serious side effects occur: vision changes, rapid or pounding heartbeat, easy bruising or bleeding, difficult/painful swallowing. Tell your doctor immediately if any of these highly unlikely but very serious side effects occur: change in amount of urine, severe headache, very stiff neck, mental/mood changes, persistent sore throat or fever. This drug may rarely cause serious (possibly fatal) liver disease. If you notice any of the following highly unlikely but very serious side effects, stop taking ibuprofen and consult your doctor or pharmacist immediately: yellowing eyes and skin, dark urine, unusual/extreme tiredness. An allergic reaction to this drug is unlikely, but seek immediate medical attention if it occurs. Symptoms of an allergic reaction include: rash, itching/ swelling (especially of the face/tongue/throat), severe dizziness, trouble breathing. This is not a complete list of possible side effects. ACETAMINOPHEN SIDE EFFECTS: This drug usually has no side effects. If you do not have liver problems, the maximum dose of acetaminophen for adults is 4 grams per day (4000 milligrams). Taking more than the maximum daily amount may cause serious (possibly fatal) liver damage. Get medical help right away if you have any of the following symptoms of liver damage: persistent nausea/vomiting, extreme tiredness, stomach/abdominal pain, yellowing eyes/skin, dark urine. If you have liver problems, consult your doctor or pharmacist for a safe dosage of this medication. A very serious allergic reaction to this drug is rare. However , get medical help right away if you notice any symptoms of a serious allergic reaction, including: rash, itching/swelling (especially of the face/tongue/ throat), severe dizziness, trouble breathing. This is not a complete list of possible side effects. If you notice other effects not listed above, contact your doctor or pharmacist. DRUG INTERACTIONS: Your healthcare professionals (e.g., doctor or pharmacist) may already be aware of any possible drug interactions and may be monitoring you for it. Do not start, stop or change the dosage of any medicine before checking with them first. This drug should not be used with the following medications because very serious interactions may occur: cidofovir, ketorolac. If you are currently using any of these medications listed above, tell your doctor or pharmacist before starting ibuprofen. Before using this medication, tell your doctor or pharmacist of all prescription and nonprescription/herbal products you may use, especially of: anti-platelet drugs (e.g., cilostazol, clopidogrel), oral bisphosphonates (e.g., alendronate), other medications for arthritis (e.g., aspirin, methotrexate), "blood thinners" (e.g., enoxaparin, heparin, warfarin), corticosteroids (e.g., prednisone), cyclosporine, desmopressin, high blood pressure drugs (including JOCELYN inhibitors such as captopril, angiotensin II receptor antagonists such as losartan, and beta- blockers such as metoprolol), lithium, pemetrexed, "water pills" (diuretics such as furosemide, hydrochlorothiazide, triamterene). Check all prescription and nonprescription medicine labels carefully for other pain/fever drugs ( NSAIDs such as aspirin, celecoxib, naproxen). These drugs are similar to ibuprofen, so taking one of these drugs while also taking ibuprofen may increase your risk of side effects. Consult your doctor or pharmacist for more details. However, if your doctor has prescribed low doses of aspirin to prevent heart attack or stroke (usually at dosages of 81-325 milligrams a day), you should continue to take the aspirin. Daily use of ibuprofen may decrease aspirin 's ability to prevent heart attack/stroke. Talk to your doctor about using a different medication (e.g., acetaminophen) to treat pain/fever. If you must take ibuprofen, talk to your doctor about possibly taking immediate-release aspirin (not enteric-coated) while also taking the ibuprofen dose apart from your aspirin dose. Do not increase your daily dose of aspirin or change the way you take aspirin/other medications without your doctor's approval. This document does not contain all possible interactions. Therefore, before using this product, tell your doctor or pharmacist of all the products you use. Keep a list of all your medications with you, and share the list with your doctor and pharmacist. Sepsis Event Note - Evaluation Sepsis Screening Result: No Definite Risk - Focused Exam Vital Signs: Vital Signs Temp Pulse Resp BP Pulse Ox 09/12/19 13:40 86 16 133/76 97 09/12/19 10:56 36.7 C 89 20 114/62 97 Date Exam was Performed: 09/12/19 Time Exam was Performed: 16:06 - My Orders Last 24 Hours: My Active Orders 09/12/19 11:50 EKG Documentation Completion [RC] STAT - Assessment/Plan Last 24 Hours: My Active Orders 09/12/19 11:50 EKG Documentation Completion [RC] STAT
== END 2019-09-12 16:36 | disposition home or self-care (01) ==
LOC: MW.ED 10:53
DX: R51 Headache (principal); R42 Dizziness and giddiness; Z88.1 Allergy status to other antibiotic agents; Z88.0 Allergy status to penicillin
CPT/HCPCS: 36415; 70551; 80053; 83735; 85025; 85379; 93005; 99284; A9270; J1200; J2765; J7030

== ENCOUNTER 2019-09-24 10:00 | Emergency (ER) | payer MEDICAID ==
--- NOTE | 2019-09-24 10:12 | EDM.PDOC ---
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 She states for the past month she has had dizziness. She reports having dizziness all the time but is worse with certain activity. She states when the dizziness gets worse, she gets a headache and occasional pain behind her left eye. She states having "milky/hazy" vision at times. She has been seen for this in the past but states she was told it was anxiety. She reports going to [facility] [place] after her symptoms were "dismissed by her OB " and she was told that her cervix was "dilated and softened but baby had not dropped." She was placed on bedrest by her OB. She states her symptoms are worsening. She had also had episodes of fainting and she also notes her blood pressure being occasionally elevated but states it doesn't stay elevated. Patient states she is also having abdominal cramping and light spotting, she states this has been going on for a couple of weeks at least. She was seen on 09/12/2019 and had a work up with unremarkable labs and a negative brain MRI. Review of systems: As per history of present illness and below otherwise all systems reviewed and negative. Past medical history: As per history of present illness and as reviewed below otherwise noncontributory. Surgical history: As per history of present illness and as reviewed below otherwise noncontributory. Social history: No reported history of drug or alcohol abuse. Family history: As per history of present illness and as reviewed below otherwise noncontributory. Physical exam: General: Patient sitting comfortably in no acute distress and nontoxic appearing HEENT: Atraumatic, normocephalic, pupils reactive, negative for conjunctival pallor or scleral icterus, mucous membranes moist, throat clear, neck supple, nontender, trachea midline. No meningeal signs. Lungs: Clear to auscultation, breath sounds equal bilaterally, chest nontender. Heart: S1S2, regular, negative for clicks, rubs, or overt murmur. Abdomen: Gravid uterus. Soft, nondistended, nontender. Negative for masses or hepatosplenomegaly. Negative for costovertebral tenderness. No rigidity, rebound , guarding. Pelvis: Stable nontender. Genitourinary: Deferred. Rectal: Deferred. Extremities: Atraumatic, negative for cords or calf pain. Neurovascular unremarkable. Neuro: Awake, alert, oriented. Cranial nerves II through XII unremarkable. Cerebellum unremarkable. Motor and sensory unremarkable throughout. Exam nonfocal. Notes: Diagnostics: [employer]: [] Prescriptions: Impression: Headache/blurred vision/cramping in third trimester Plan: Patient to OB for further evaluation and NST. Definitive disposition and diagnosis as appropriate pending reevaluation and review of above. Left Headache Pain Score (Numeric/FACES): 4 - Related Data Allergies Allergy/AdvReac Type Severity Reaction Status Date / Time cefdinir [From Omnicef] Allergy Hives Verified 09/24/19 10:08 cephalexin [From Keflex] Allergy Rash Verified 09/24/19 10:08 Penicillins Allergy Rash Verified 09/24/19 10:08 vancomycin Allergy Airway Verified 09/24/19 10:08 Tightness Home Meds: Home Meds Mv-Mn/Iron/FA/Herbal/Digestive [ One Tablet] 1 tab PO DAILY 09/06/19 [ History] Past Medical History HEENT History: Reports: None Cardiovascular History: Reports: None Respiratory History: Reports: None Genitourinary History: Reports: None TAG CLERK History: Reports: Polycystic Ovaries Musculoskeletal History: Reports: None Psychiatric History: Reports: None Endocrine/Metabolic History: Reports: None Hematologic History: Reports: None Dermatologic History: Reports: None - Infectious Disease History Infectious Disease History: Reports: Chicken Pox, Shingles - Past Surgical History GI Surgical History: Reports: Cholecystectomy Social & Family History - Family History Family Medical History: Noncontributory - Caffeine Use Caffeine Use: Reports: Coffee ED ROS GENERAL - Review of Systems Review Of Systems: Comprehensive ROS is negative, except as noted in HPI. ED EXAM, GI/ABD - Physical Exam Exam: See Below (see dictation) Course - Vital Signs Last Recorded V/S: Last Vital Signs Temp 98.0 F 09/24/19 10:05 Pulse 76 09/24/19 10:05 Resp 18 09/24/19 10:05 BP 154/71 H 09/24/19 10:05 Pulse Ox 99 09/24/19 10:05 - Orders/Labs/Meds Orders: Active Orders 24 hr Category Date Time Status CULTURE URINE [RM] Stat Lab 09/24/19 10:31 Received Labs: Laboratory Tests 09/24/19 Range/Units 10:31 Urine Color YELLOW Urine Appearance SLT CLOUDY Urine pH 6.0 (5.0-8.0) Ur Specific [place] 1.020 (1.001-1.035) Urine Protein NEGATIVE (NEGATIVE) mg/dL Urine Glucose (UA) NEGATIVE (NEGATIVE) mg/dL Urine Ketones NEGATIVE (NEGATIVE) mg/dL Urine Occult Blood NEGATIVE (NEGATIVE) Urine Nitrite NEGATIVE (NEGATIVE) Urine Bilirubin NEGATIVE (NEGATIVE) Urine Urobilinogen 0.2 (<2.0) EU/dL Ur Leukocyte Esterase SMALL H (NEGATIVE) Urine RBC 0-1 (0-2/HPF) Urine WBC 1-3 (0-5/HPF) Ur Epithelial Cells FEW (NONE-FEW) Urine Bacteria FEW (NEGATIVE) Departure - Departure Time of Disposition: 10:57 Disposition: Still A Patient 30 Condition: Good Clinical Impression: Headache, Abdominal pain in - Discharge Information Forms: ED Department Discharge Sepsis Event Note - Focused Exam Vital Signs: Vital Signs Temp Pulse Resp BP Pulse Ox 09/24/19 10:05 98.0 F 76 18 154/71 H 99 Date Exam was Performed: 09/24/19 Time Exam was Performed: 10:57 - My Orders Last 24 Hours: My Active Orders 09/24/19 10:31 CULTURE URINE [RM] Stat - Assessment/Plan Last 24 Hours: My Active Orders 09/24/19 10:31 CULTURE URINE [RM] Stat
== END 2019-09-24 10:40 | disposition still patient (30) ==
LOC: MW.ED 10:00
DX: O99.89 Other specified diseases and conditions complicating pregnancy, childbirth and the puerperium (principal); R51 Headache; R10.9 Unspecified abdominal pain; Z88.1 Allergy status to other antibiotic agents; Z88.0 Allergy status to penicillin; Z88.8 Allergy status to other drugs, medicaments and biological substances; Z3A.32 32 weeks gestation of pregnancy
CPT/HCPCS: 81001; 87086; 99283; 99285

== ENCOUNTER 2019-10-22 23:58 | Inpatient (IN) | payer MEDICAID ==
[2019-10-23] MEDS ORDERED: Sodium Chloride 0.9% 10 ML SDV IV PRN (01:04)
[2019-10-23] MEDS ORDERED: Lidocaine 1% 50 ML MDV INJECT PRN (01:04)
[2019-10-23] MEDS ORDERED: Butorphanol 1 MG/ML SDV IVPUSH PRN (01:04)
[2019-10-23] MEDS ORDERED: Sodium Chloride 0.9% 10 ML Syringe FLUSH PRN (01:04)
[2019-10-23] MEDS ORDERED: Nalbuphine 10 MG/1 ML Vial IVPUSH PRN (01:04)
[2019-10-23] MEDS ORDERED: Methylergonovine 0.2 MG/1 ML Amp IM PRN (01:04)
[2019-10-23] MEDS ORDERED: Water For Irrigation,Sterile 1,000 ML Container IRR PRN (01:04)
[2019-10-23] MEDS ORDERED: Carboprost Tromethamine 250 MCG/1 ML Amp IM PRN (01:04)
[2019-10-23] MEDS ORDERED: Ondansetron 4 MG/2 ML SDV IVPUSH PRN (01:04)
[2019-10-23] MEDS ORDERED: Sodium Chloride 0.9% 2.5 ML Syringe FLUSH PRN (01:04)
[2019-10-23] MEDS ORDERED: Tranexamic Acid 1,000 MG in Sodium Chloride 0.9% 100 ML IV PRN (01:04)
[2019-10-23] MEDS ORDERED: Misoprostol 200 MCG Tab PO PRN (01:04)
[2019-10-23] MEDS ORDERED: Betamethasone Acetate/Betamethasone Sod Phosphate 30 MG/5 ML MDV IM ONE (01:08)
[2019-10-23] MEDS ORDERED: Oxytocin/0.9 % Sodium Chloride 30 UNIT/500 ML BAG IV SCH (01:15)
[2019-10-23] MEDS: Lactated Ringers 1,000 ML IV SCH ×2 (01:49→05:30)
[2019-10-23] MEDS: Clindamycin Phosphate in D5W 900 MG in Premix Bag 1 BAG IV SCH ×6 (01:49→21:46)
[2019-10-23 04:39] LABS: BLOOD UREA NITROGEN,BUN 7 mg/dL (7.0-18.0); CARBON DIOXIDE,CO2 27.4 mmol/L (21.0-32.0); CHLORIDE,CL 106 mmol/L (98-107); GLUCOSE RANDOM 90 mg/dL (74-106); POTASSIUM,K 4.1 mmol/L (3.5-5.1); SODIUM,NA 141 mmol/L (136-145)
[2019-10-23] MEDS ORDERED: fentaNYL 100 MCG/2 ML SDV ONE (05:15)
[2019-10-23] MEDS ORDERED: Ropivacaine HCl/PF 100 ML ONE (05:15)
--- NOTE | 2019-10-23 05:36 | PCM.PREANE ---
Preanesthetic Assessment - Anesthesia/Transfusion/Family Hx Anesthesia History: Prior Anesthesia Without Reaction Family History of Anesthesia Reaction: No Transfusion History: No Prior Transfusion(s) - Physical Assessment NPO Status Date: 10/23/19 NPO Status Time: 01:00 Height: 1.65 m Weight: 95.254 kg ASA Class: 2 - Lab Values: Laboratory Last Values WBC 11.20 K/uL (4.0-11.0) H 10/23/19 01:28 RBC 3.89 M/uL (4.30-5.90) L 10/23/19 01:28 Hgb 11.3 g/dL (12.0-16.0) L 10/23/19 01:28 Hct 33.4 % (36.0-46.0) L 10/23/19 01:28 MCV 85.9 fL (80.0-98.0) 10/23/19 01:28 MCH 29.0 pg (27.0-32.0) 10/23/19 01:28 MCHC 33.8 g/dL (31.0-37.0) 10/23/19 01:28 RDW Std Deviation 44.3 fl (28.0-62.0) 10/23/19 01:28 RDW Coeff of Kelly 14 % (11.0-15.0) 10/23/19 01:28 Plt Count 282 K/uL (150-400) 10/23/19 01:28 MPV 10.30 fL (7.40-12.00) 10/23/19 01:28 Nucleated RBC % 0.0 /100WBC 10/23/19 01:28 Nucleated RBCs # 0 K/uL 10/23/19 01:28 Sodium 141 mmol/L (136-145) 10/23/19 01:28 Potassium 4.1 mmol/L (3.5-5.1) 10/23/19 01:28 Chloride 106 mmol/L (98-107) 10/23/19 01:28 Carbon Dioxide 27.4 mmol/L (21.0-32.0) 10/23/19 01:28 BUN 7 mg/dL (7.0-18.0) 10/23/19 01:28 Creatinine 0.7 mg/dL (0.6-1.0) 10/23/19 01:28 Est Cr Clr Drug Dosing 102.86 mL/min 10/23/19 01:28 Estimated GFR (MDRD) > 60.0 ml/min 10/23/19 01:28 Glucose 90 mg/dL (74-106) 10/23/19 01:28 Uric Acid 5.1 mg/dL (2.6-7.2) 10/23/19 01:28 Calcium 9.3 mg/dL (8.5-10.1) 10/23/19 01:28 Total Bilirubin 0.2 mg/dL (0.2-1.0) 10/23/19 01:28 AST 12 IU/L (15-37) L 10/23/19 01:28 ALT 15 IU/L (14-63) 10/23/19 01:28 Alkaline Phosphatase 139 U/L (46-116) H 10/23/19 01:28 Total Protein 7.0 g/dL (6.4-8.2) 10/23/19 01:28 Albumin 2.5 g/dL (3.4-5.0) L 10/23/19 01:28 Globulin 4.5 g/dL (2.6-4.0) H 10/23/19 01:28 Albumin/Globulin Ratio 0.6 (0.9-1.6) L 10/23/19 01:28 Blood Type A POSITIVE 10/23/19 01:28 Antibody Screen NEGATIVE 10/23/19 01:28 - Allergies Allergies/Adverse Reactions: Allergies Allergy/AdvReac Type Severity Reaction Status Date / Time vancomycin Allergy Severe Airway Verified 09/27/19 10:32 Tightness cefdinir [From Omnicef] Allergy Intermediate Hives Verified 09/27/19 10:32 cephalexin [From Keflex] Allergy Intermediate Rash Verified 09/27/19 10:32 Penicillins Allergy Intermediate Rash Verified 09/27/19 10:32 - Acknowledgements Anesthesia Type Planned: Epidural Pt an Appropriate Candidate for the Planned Anesthesia: Yes Alternatives and Risks of Anesthesia Discussed w Pt/Guardian: Yes Pt/Guardian Understands and Agrees with Anesthesia Plan: Yes PreAnesthesia Questionnaire HEENT History: Reports: Impaired Vision Cardiovascular History: Reports: None Respiratory History: Reports: None Gastrointestinal History: Reports: None Genitourinary History: Reports: None ENGLISH ADJUNCT FACULTY History: Reports: Polycystic Ovaries, Spontaneous Musculoskeletal History: Reports: None Psychiatric History: Reports: None Endocrine/Metabolic History: Reports: Diabetes, Gestational Hematologic History: Reports: None Dermatologic History: Reports: None - Infectious Disease History Infectious Disease History: Reports: Chicken Pox - Past Surgical History HEENT Surgical History: Reports: None GI Surgical History: Reports: Cholecystectomy Endocrine Surgical History: Reports: None - SUBSTANCE USE Smoking Status *Q: Former Smoker Tobacco Use Within Last Twelve Months: Cigarettes Recreational Drug Use History: No - HOME MEDS Home Medications: Home Meds Mv-Mn/Iron/FA/Herbal/Digestive [ One Tablet] 1 tab PO DAILY 09/06/19 [ History] Butalb/Acetaminophen/Caffeine [Esgic 50-325-40 mg Tablet] 1 each PO Q8HR PRN # 20 tablet 09/27/19 [Rx] - CURRENT (IN HOUSE) MEDS Current Meds: Current Medications Butorphanol Tartrate (Stadol) 1 mg IVPUSH Q1H PRN PRN Reason: Pain Carboprost Tromethamine (Hemabate Ds) 250 mcg IM ASDIRECTED PRN PRN Reason: Post Hemorrhage Tranexamic Acid 1,000 mg/ (Sodium Chloride) 110 mls @ 660 mls/hr IV ONETIME PRN PRN Reason: Bleeding Lactated Ringer's (Ringers, Lactated) 1,000 mls @ 150 mls/hr IV ASDIRECTED [facility] Last Infusion: 10/23/19 04:30 Dose: 999 mls/hr Oxytocin/Sodium Chloride (Oxytocin 30 Unit/500 Ml-Ns) 30 unit in 500 mls @ 500 mls/hr IV TITRATE [facility] Clindamycin Phosphate 900 mg/ (Premix) 50 mls @ 100 mls/hr IV Q8H [facility] Last Admin: 10/23/19 01:49 Dose: 100 mls/hr Lidocaine HCl (Xylocaine 1%) 50 ml INJECT ONETIME PRN PRN Reason: Laceration repair Methylergonovine Maleate (Methergine) 0.2 mg IM ASDIRECTED PRN PRN Reason: Post Hemorrhage Misoprostol (Cytotec) 200 mcg PO ONETIME PRN PRN Reason: Post Hemorrhage Nalbuphine HCl (Nubain) 10 mg IVPUSH Q1H PRN PRN Reason: Pain (severe 7-10) Ondansetron HCl (Zofran) 4 mg IVPUSH Q6H PRN PRN Reason: Nausea/Vomiting Sodium Chloride (Saline Flush) 10 ml FLUSH ASDIRECTED PRN PRN Reason: Keep Vein Open Sodium Chloride (Saline Flush) 2.5 ml FLUSH ASDIRECTED PRN PRN Reason: Keep Vein Open Sodium Chloride (Normal Saline) 10 ml IV ASDIRECTED PRN PRN Reason: IV Use Sterile Water (Sterile Water For Irrigation) 1,000 ml IRR ASDIRECTED PRN PRN Reason: delivery Discontinued Medications Betamethasone Acet/Betameth SodPhos (Celestone Soluspan 6 Mg/Ml) 12 mg IM ONETIME ONE Stop: 10/23/19 01:09 Last Admin: 10/23/19 01:51 Dose: 12 mg Fentanyl (Sublimaze) Confirm Administered Dose 100 mcg .ROUTE .STK-MED ONE Stop: 10/23/19 05:16 Ropivacaine (Naropin 0.2%) Confirm Administered Dose 100 mls @ as directed .ROUTE .STK-MED ONE Stop: 10/23/19 05:16
--- NOTE | 2019-10-23 05:40 | PCM.PRNOTE ---
- Free Text/Narrative Note: Anes Note Patient requests epidural for L&D> Sitting position, sterile technique. Level L3-L4 midline approach, chloraprep scrub to lumbar area. Sterile fenestrated drape applied. Epidural space easily achieved single attempt with ease using KHOI technique. KHOI at 3 cm. Cath threaded 6 cm with ease. Cath secured at 9 cm at skin using sterile clear adhesive dressing. 0525 test 3 cc 1.5 lido with epi negative. 0529 Load 10 cc 0.2% ropivicaine with 1 mcg cc fentayl in slow divided doses. 0535 Pump started wtih 90 cc same solution. Rate is 8 cc hr with 6 cc q 20 min prn blous. Lisandro well. Time with patietn [id number]. Channing Lim PROCUREMENT FORESTER
[2019-10-23] MEDS ORDERED: Witch Hazel Medicated Pads 40/Jar TOP PRN (08:39)
[2019-10-23] MEDS ORDERED: Measles, Mumps & Rubella Vaccine 0.5 ML SDV SUBCUT ONE (08:39)
[2019-10-23] MEDS ORDERED: Lanolin 100% Cream 7 GM Tube TOP PRN (08:39)
[2019-10-23] MEDS ORDERED: Bisacodyl 10 MG Supp RECTAL PRN (08:39)
[2019-10-23] MEDS ORDERED: oxyCODONE 5 MG Tab PO PRN (08:39)
[2019-10-23] MEDS ORDERED: Benzocaine/Menthol 20%-0.5% Spray 78 GM Cannister TOP PRN (08:39)
--- NOTE | 2019-10-23 08:44 | PCM.DEL ---
L & D Note - General Info Date of Service: 10/23/19 Mother's Due Date: 11/18/19 - Delivery Note Labor: Spontaneous Delivery Outcome: Livebirth Infant Delivery Method: Spontaneous Vaginal Delivery-Single Presentation: Right Occiput Posterior (ROP) Nuchal Cord: None Anesthesia Type: Epidural Amniotic Fluid Description: Clear Episiotomy Type: None Laceration: None Placenta: Intact, Spontaneous Cord: 3 Vessels Score 1 min: 8 Score 5 min: 9 - General Info Date of Service: 10/23/19 - Patient Data Weight - Most Recent: 95.254 kg Lab Results Last 24 Hours: Laboratory Results - last 24 hr 10/23/19 10/23/19 10/23/19 Range/Units 01:28 01:28 01:28 WBC 11.20 H (4.0-11.0) K/uL RBC 3.89 L (4.30-5.90) M/uL Hgb 11.3 L (12.0-16.0) g/dL Hct 33.4 L (36.0-46.0) % MCV 85.9 (80.0-98.0) fL MCH 29.0 (27.0-32.0) pg MCHC 33.8 (31.0-37.0) g/dL RDW Std Deviation 44.3 (28.0-62.0) fl RDW Coeff of Kelly 14 (11.0-15.0) % Plt Count 282 (150-400) K/uL MPV 10.30 (7.40-12.00) fL Nucleated RBC % 0.0 /100WBC Nucleated RBCs # 0 K/uL Sodium 141 (136-145) mmol/L Potassium 4.1 (3.5-5.1) mmol/L Chloride 106 (98-107) mmol/L Carbon Dioxide 27.4 (21.0-32.0) mmol/L BUN 7 (7.0-18.0) mg/dL Creatinine 0.7 (0.6-1.0) mg/dL Est Cr Clr Drug Dosing 102.86 mL/min Estimated GFR (MDRD) > 60.0 ml/min Glucose 90 (74-106) mg/dL Uric Acid 5.1 (2.6-7.2) mg/dL Calcium 9.3 (8.5-10.1) mg/dL Total Bilirubin 0.2 (0.2-1.0) mg/dL AST 12 L (15-37) IU/L ALT 15 (14-63) IU/L Alkaline Phosphatase 139 H (46-116) U/L Total Protein 7.0 (6.4-8.2) g/dL Albumin 2.5 L (3.4-5.0) g/dL Globulin 4.5 H (2.6-4.0) g/dL Albumin/Globulin Ratio 0.6 L (0.9-1.6) Blood Type A POSITIVE Antibody Screen NEGATIVE Med Orders - Current: Current Medications Acetaminophen (Tylenol Extra Strength) 1,000 mg PO Q6H PRN PRN Reason: Pain Benzocaine/Menthol (Dermoplast Pain Relief 20%-0.5% [place]) 78 gm TOP ASDIRECTED PRN PRN Reason: Perineal Comfort Measure Bisacodyl (Dulcolax) 10 mg RECTAL ONETIME PRN PRN Reason: Constipation Butorphanol Tartrate (Stadol) 1 mg IVPUSH Q1H PRN PRN Reason: Pain Carboprost Tromethamine (Hemabate Ds) 250 mcg IM ASDIRECTED PRN PRN Reason: Post Hemorrhage Docusate Sodium (Colace) 100 mg PO BID PRN PRN Reason: Constipation Emollient Ointment (Lansinoh Hpa) 0 gm TOP ASDIRECTED PRN PRN Reason: Sore Nipples Tranexamic Acid 1,000 mg/ (Sodium Chloride) 110 mls @ 660 mls/hr IV ONETIME PRN PRN Reason: Bleeding Lactated Ringer's (Ringers, Lactated) 1,000 mls @ 150 mls/hr IV ASDIRECTED [facility] Last Admin: 10/23/19 05:30 Dose: 150 mls/hr Oxytocin/Sodium Chloride (Oxytocin 30 Unit/500 Ml-Ns) 30 unit in 500 mls @ 500 mls/hr IV TITRATE [facility] Clindamycin Phosphate 900 mg/ (Premix) 50 mls @ 100 mls/hr IV Q8H [facility] Last Admin: 10/23/19 01:49 Dose: 100 mls/hr Ibuprofen (Motrin) 800 mg PO Q8H PRN PRN Reason: Pain Lidocaine HCl (Xylocaine 1%) 50 ml INJECT ONETIME PRN PRN Reason: Laceration repair Measles/Mumps/Rubella Vaccine Live (M-M-R Ii Vaccine) 0.5 ml SUBCUT .ONCE ONE Stop: 10/23/19 08:40 Methylergonovine Maleate (Methergine) 0.2 mg IM ASDIRECTED PRN PRN Reason: Post Hemorrhage Misoprostol (Cytotec) 200 mcg PO ONETIME PRN PRN Reason: Post Hemorrhage Nalbuphine HCl (Nubain) 10 mg IVPUSH Q1H PRN PRN Reason: Pain (severe 7-10) Ondansetron HCl (Zofran) 4 mg IVPUSH Q6H PRN PRN Reason: Nausea/Vomiting Oxycodone HCl (Oxycodone) 5 mg PO Q2H PRN PRN Reason: Pain Sodium Chloride (Saline Flush) 10 ml FLUSH ASDIRECTED PRN PRN Reason: Keep Vein Open Sodium Chloride (Saline Flush) 2.5 ml FLUSH ASDIRECTED PRN PRN Reason: Keep Vein Open Sodium Chloride (Normal Saline) 10 ml IV ASDIRECTED PRN PRN Reason: IV Use Sterile Water (Sterile Water For Irrigation) 1,000 ml IRR ASDIRECTED PRN PRN Reason: delivery Witraffi Arango (Tucks) 1 pad TOP ASDIRECTED PRN PRN Reason: comfort care Discontinued Medications Betamethasone Acet/Betameth SodPhos (Celestone Soluspan 6 Mg/Ml) 12 mg IM ONETIME ONE Stop: 10/23/19 01:09 Last Admin: 10/23/19 01:51 Dose: 12 mg Fentanyl (Sublimaze) Confirm Administered Dose 100 mcg .ROUTE .STK-MED ONE Stop: 10/23/19 05:16 Last Admin: 10/23/19 06:46 Dose: Not Given Ropivacaine (Naropin 0.2%) Confirm Administered Dose 100 mls @ as directed .ROUTE .STK-MED ONE Stop: 10/23/19 05:16 Last Admin: 10/23/19 06:46 Dose: Not Given - Problem List & Annotations (1) Vaginal delivery SNOMED Code(s): 364479639 Code(s): O80 - ENCOUNTER FOR FULL-TERM UNCOMPLICATED DELIVERY Status: Acute Current Visit: Yes (2) delivery, delivered SNOMED Code(s): 529731748, 901928363 Code(s): O60.10X0 - LABOR W DELIVERY, UNSP TRIMESTER, UNSP Status: Acute Current Visit: Yes - Problem List Review Problem List Initiated/Reviewed/Updated: Yes - My Orders Last 24 Hours: My Active Orders 10/23/19 08:39 Patient Status [ADT] Routine May Shower [RC] ASDIRECTED Notify Provider Vital Signs [RC] ASDIRECTED Up ad Sonia [RC] ASDIRECTED Vital Signs [RC] PER UNIT ROUTINE Acetaminophen [Tylenol Extra Strength] 1,000 mg PO Q6H PRN Benzocaine/Menthol [Dermoplast Pain Relief 20%-0.5% [place]] 78 gm TOP ASDIRECTED PRN Docusate Sodium [Colace] 100 mg PO BID PRN Ibuprofen [Motrin] 800 mg PO Q8H PRN Lanolin [Lansinoh HPA] See Dose Instructions TOP ASDIRECTED PRN Measles, Mumps & Rubella [M-M-R II Vaccine] 0.5 ml SUBCUT .ONCE ONE [place] [Tucks] 1 pad TOP ASDIRECTED PRN bisacodyL [Dulcolax] 10 mg RECTAL ONETIME PRN oxyCODONE 5 mg PO Q2H PRN Assess Lochia [WOMSER] Per Unit Routine Assess Uterine Involution [WOMSER] Per Unit Routine Breast Pump [WOMSER] Per Unit Routine Perineal Care [OM.PC] Per Unit Routine Peripheral IV Discontinue [OM.PC] Routine Sitz Bath [OM.PC] Per Unit Routine 10/23/19 08:40 Cooling Warming Measures [RC] ASDIRECTED Ice Therapy [OM.PC] Per Unit Routine 10/23/19 08:41 BLOOD GAS ARTERIAL UMBILICAL [BG] Routine BLOOD GAS VENOUS UMBILICAL [BG] Routine 10/23/19 Breakfast Regular Diet [DIET] 10/24/19 05:11 HEMOGLOBIN/HEMATOCRIT,HH [HEME] Timed - Assessment Assessment:: 34yo s/p at 36w2d - Plan Plan:: Admit to unit for routine care. Rubella non-immune, needs MMR prior to discharge home.
--- NOTE | 2019-10-23 10:48 | OR ---
SURGEON: Sylvia Lane MD DATE OF PROCEDURE: 10/23/2019 PREOPERATIVE DIAGNOSES: 1. A 34-year-old G4, P 0-1-2-1, at 36-2/7 weeks' gestation. 2. Gestational hypertension. 3. Group B Streptococcus positive. 4. rupture of membranes with spontaneous labor. POSTOPERATIVE DIAGNOSES: 1. A 34-year-old G4, P 0-1-2-1, at 36-2/7 weeks' gestation. 2. Gestational hypertension. 3. Group B Streptococcus positive. 4. rupture of membranes with spontaneous labor. PROCEDURE: Spontaneous vaginal delivery. PRIMARY SURGEON: Sylvia Lane MD. ANESTHESIA: Epidural. ESTIMATED BLOOD LOSS: 200 mL. FINDINGS: Live male in right occiput posterior position. score of 8 and 9 at one and five minutes respectively. Weight 2770 g. Placenta intact and with 3- vessel cord. No lacerations. DESCRIPTION OF PROCEDURE: The patient presented to Labor and Delivery complaining of spontaneous rupture of membranes. This was confirmed, and on check, the patient was 3 cm dilated. The patient was given one dose of betamethasone for lung maturity due to gestation. She was started on clindamycin for GBS prophylaxis. Blood pressures were monitored and were noted to be in mild range. She received an epidural for anesthesia. She progressed to complete cervical dilation. The head was delivered followed by the shoulders and the remainder of the body. The infant was placed on the maternal abdomen. After approximately 60 seconds, the cord was clamped and cut. Cord gases and cord blood were obtained in the usual fashion. The placenta was then delivered intact and with 3-vessel cord via the Berger-Bah maneuver. The perineum was inspected and no lacerations were noted. The fundus was firm with scant bleeding. The patient and infant tolerated the delivery well. [id number] / MODL /[id number]
[2019-10-23] MEDS: Ibuprofen 800 MG Tab PO PRN (11:51)
[2019-10-23] MEDS: Acetaminophen 500 MG Tab PO PRN ×2 (11:53→19:36)
--- NOTE | 2019-10-24 07:54 | PCM.PNPP ---
- General Info Date of Service: 10/24/19 Admission Dx/Problem (Free Text): Denies headache. Minimal-moderate lochia. Pain controlled. . Functional Status: Reports: Pain Controlled, Tolerating Diet, Ambulating, Urinating - Review of Systems General: Reports: No Symptoms HEENT: Reports: No Symptoms Pulmonary: Reports: No Symptoms Cardiovascular: Reports: No Symptoms Gastrointestinal: Reports: No Symptoms Genitourinary: Reports: No Symptoms Musculoskeletal: Reports: No Symptoms Skin: Reports: No Symptoms Neurological: Reports: No Symptoms Psychiatric: Reports: No Symptoms - Patient Data Vital Signs - Most Recent: Last Vital Signs Temp 36.1 C 10/24/19 04:00 Pulse 85 10/24/19 04:00 Resp 16 10/24/19 04:00 BP 124/68 10/24/19 04:00 Pulse Ox 98 10/24/19 04:00 Weight - Most Recent: 95.254 kg Lab Results - Last 24 Hours: Laboratory Results - last 24 hr 10/23/19 10/24/19 Range/Units 08:25 05:45 Hgb 8.6 L (12.0-16.0) g/dL Hct 26.5 L (36.0-46.0) % Cord ABG pH 7.305 (7.18-7.38) Cord ABG Base Excess -6 (-10--2) Cord VBG pH 7.319 (7.25-7.45) Cord VBG Base Excess -5 (-10--2) Med Orders - Current: Current Medications Acetaminophen (Tylenol Extra Strength) 1,000 mg PO Q6H PRN PRN Reason: Pain Last Admin: 10/23/19 19:36 Dose: 1,000 mg Benzocaine/Menthol (Dermoplast Pain Relief 20%-0.5% [place]) 78 gm TOP ASDIRECTED PRN PRN Reason: Perineal Comfort Measure Last Admin: 10/23/19 11:50 Dose: 1 canister Bisacodyl (Dulcolax) 10 mg RECTAL ONETIME PRN PRN Reason: Constipation Butorphanol Tartrate (Stadol) 1 mg IVPUSH Q1H PRN PRN Reason: Pain Carboprost Tromethamine (Hemabate Ds) 250 mcg IM ASDIRECTED PRN PRN Reason: Post Hemorrhage Docusate Sodium (Colace) 100 mg PO BID PRN PRN Reason: Constipation Emollient Ointment (Lansinoh Hpa) 0 gm TOP ASDIRECTED PRN PRN Reason: Sore Nipples Last Admin: 10/23/19 11:54 Dose: 1 tube Tranexamic Acid 1,000 mg/ (Sodium Chloride) 110 mls @ 660 mls/hr IV ONETIME PRN PRN Reason: Bleeding Lactated Ringer's (Ringers, Lactated) 1,000 mls @ 150 mls/hr IV ASDIRECTED [facility] Last Admin: 10/23/19 05:30 Dose: 150 mls/hr Oxytocin/Sodium Chloride (Oxytocin 30 Unit/500 Ml-Ns) 30 unit in 500 mls @ 500 mls/hr IV TITRATE [facility] Last Admin: 10/23/19 08:26 Dose: 500 mls/hr Clindamycin Phosphate 900 mg/ (Premix) 50 mls @ 100 mls/hr IV Q8H [facility] Last Admin: 10/23/19 21:46 Dose: Not Given Ibuprofen (Motrin) 800 mg PO Q8H PRN PRN Reason: Pain Last Admin: 10/23/19 11:51 Dose: 800 mg Lidocaine HCl (Xylocaine 1%) 50 ml INJECT ONETIME PRN PRN Reason: Laceration repair Methylergonovine Maleate (Methergine) 0.2 mg IM ASDIRECTED PRN PRN Reason: Post Hemorrhage Misoprostol (Cytotec) 200 mcg PO ONETIME PRN PRN Reason: Post Hemorrhage Nalbuphine HCl (Nubain) 10 mg IVPUSH Q1H PRN PRN Reason: Pain (severe 7-10) Ondansetron HCl (Zofran) 4 mg IVPUSH Q6H PRN PRN Reason: Nausea/Vomiting Oxycodone HCl (Oxycodone) 5 mg PO Q2H PRN PRN Reason: Pain Sodium Chloride (Saline Flush) 10 ml FLUSH ASDIRECTED PRN PRN Reason: Keep Vein Open Sodium Chloride (Saline Flush) 2.5 ml FLUSH ASDIRECTED PRN PRN Reason: Keep Vein Open Sodium Chloride (Normal Saline) 10 ml IV ASDIRECTED PRN PRN Reason: IV Use Sterile Water (Sterile Water For Irrigation) 1,000 ml IRR ASDIRECTED PRN PRN Reason: delivery Last Admin: 10/23/19 12:25 Dose: 1,000 ml Witraffi Martiel (Tucks) 1 pad TOP ASDIRECTED PRN PRN Reason: comfort care Last Admin: 10/23/19 11:51 Dose: 1 tub Discontinued Medications Betamethasone Acet/Betameth SodPhos (Celestone Soluspan 6 Mg/Ml) 12 mg IM ONETIME ONE Stop: 10/23/19 01:09 Last Admin: 10/23/19 01:51 Dose: 12 mg Fentanyl (Sublimaze) Confirm Administered Dose 100 mcg .ROUTE .STK-MED ONE Stop: 10/23/19 05:16 Last Admin: 10/23/19 06:46 Dose: Not Given Ropivacaine (Naropin 0.2%) Confirm Administered Dose 100 mls @ as directed .ROUTE .STK-MED ONE Stop: 10/23/19 05:16 Last Admin: 10/23/19 06:46 Dose: Not Given Measles/Mumps/Rubella Vaccine Live (M-M-R Ii Vaccine) 0.5 ml SUBCUT .ONCE ONE Stop: 10/23/19 08:40 - Infant Interaction Disposition, : [place] in Room with Family Interaction: Holding Infant Feeding: Attempted ; Nursed Fair/Poor, Bottle Fed Infant - Recovery Exam Fundal Tone: Firm Fundal Level: 1 Fingerbreadths Below Umbilicus Fundal Placement: Midline Lochia Amount: Small Lochia Color: Rubra/Red Perineum Description: Intact, Minimal Bruising/Swelling Episiotomy/Laceration: None Bladder Status: Voiding Urinary Elimination: Voided - Exam General: Alert, Oriented Neck: Supple Lungs: Clear to Auscultation, Normal Respiratory Effort Cardiovascular: Regular Rate, Regular Rhythm GI/Abdominal Exam: Soft, Non-Tender Extremities: No Pedal Edema Skin: Warm, Dry, Intact Neurological: No New Focal Deficit Psy/Mental Status: Alert, Normal Affect, Normal Mood - Problem List & Annotations (1) Vaginal delivery SNOMED Code(s): 451489119 Code(s): O80 - ENCOUNTER FOR FULL-TERM UNCOMPLICATED DELIVERY Status: Acute Current Visit: Yes (2) delivery, delivered SNOMED Code(s): 490725436, 987191830 Code(s): O60.10X0 - LABOR W DELIVERY, UNSP TRIMESTER, UNSP Status: Acute Current Visit: Yes - Problem List Review Problem List Initiated/Reviewed/Updated: Yes - My Orders Last 24 Hours: My Active Orders 10/23/19 08:39 Patient Status [ADT] Routine Notify Provider Vital Signs [RC] ASDIRECTED Acetaminophen [Tylenol Extra Strength] 1,000 mg PO Q6H PRN Benzocaine/Menthol [Dermoplast Pain Relief 20%-0.5% [place]] 78 gm TOP ASDIRECTED PRN Docusate Sodium [Colace] 100 mg PO BID PRN Ibuprofen [Motrin] 800 mg PO Q8H PRN Lanolin [Lansinoh HPA] See Dose Instructions TOP ASDIRECTED PRN Witch Conchita [Tucks] 1 pad TOP ASDIRECTED PRN bisacodyL [Dulcolax] 10 mg RECTAL ONETIME PRN oxyCODONE 5 mg PO Q2H PRN Assess Lochia [WOMSER] Per Unit Routine Assess Uterine Involution [WOMSER] Per Unit Routine Breast Pump [WOMSER] Per Unit Routine Perineal Care [OM.PC] Per Unit Routine Peripheral IV Discontinue [OM.PC] Routine Sitz Bath [OM.PC] Per Unit Routine 10/23/19 08:40 Cooling Warming Measures [RC] ASDIRECTED Ice Therapy [OM.PC] Per Unit Routine 10/24/19 07:51 Ready for Discharge [RC] PER UNIT ROUTINE - Assessment Assessment:: 34yo s/p at 36w2d, PPD#1. - Plan Plan:: Patient desires discharge home today. Reviewed discharge instructions.
--- NOTE | 2019-10-24 10:45 | PCM48HPAN ---
Post Anesthesia Note - EVALUATION WITHIN 48HRS OF ANESTHETIC Vital Signs in Normal Range: Yes Patient Participated in Evaluation: Yes Respiratory Function Stable: Yes Airway Patent: Yes Cardiovascular Function Stable: Yes Hydration Status Stable: Yes Pain Control Satisfactory: Yes Nausea and Vomiting Control Satisfactory: Yes Mental Status Recovered: Yes Vital Signs: Last Vital Signs Temp 36.1 C 10/24/19 04:00 Pulse 85 10/24/19 04:00 Resp 16 10/24/19 04:00 BP 124/68 10/24/19 04:00 Pulse Ox 98 10/24/19 04:00
[2019-10-24] MEDS: Acetaminophen 500 MG Tab PO PRN (20:00)
[2019-10-24] MEDS: Clindamycin Phosphate in D5W 900 MG in Premix Bag 1 BAG IV SCH ×4 (20:02→20:03)
[2019-10-24] MEDS: Docusate Sodium 100 MG Cap PO PRN (20:02)
[2019-10-25] MEDS: Clindamycin Phosphate in D5W 900 MG in Premix Bag 1 BAG IV SCH ×4 (04:37→09:53)
--- NOTE | 2019-10-25 07:17 | PCM.PNPP ---
- General Info Date of Service: 10/25/19 Admission Dx/Problem (Free Text): Denies headache. Minimal-moderate lochia. Pain controlled. . Functional Status: Reports: Pain Controlled - Review of Systems HEENT: Reports: No Symptoms Pulmonary: Reports: No Symptoms Cardiovascular: Reports: No Symptoms Gastrointestinal: Reports: No Symptoms Genitourinary: Reports: No Symptoms Musculoskeletal: Reports: No Symptoms Skin: Reports: No Symptoms Neurological: Reports: No Symptoms Psychiatric: Reports: No Symptoms - Patient Data Vital Signs - Most Recent: Last Vital Signs Temp 36.3 C 10/25/19 05:00 Pulse 74 10/25/19 05:00 Resp 16 10/25/19 05:00 BP 132/82 10/25/19 05:00 Pulse Ox 98 10/25/19 05:00 Weight - Most Recent: 95.254 kg Med Orders - Current: Current Medications Acetaminophen (Tylenol Extra Strength) 1,000 mg PO Q6H PRN PRN Reason: Pain Last Admin: 10/24/19 20:00 Dose: 1,000 mg Benzocaine/Menthol (Dermoplast Pain Relief 20%-0.5% [place]) 78 gm TOP ASDIRECTED PRN PRN Reason: Perineal Comfort Measure Last Admin: 10/23/19 11:50 Dose: 1 canister Bisacodyl (Dulcolax) 10 mg RECTAL ONETIME PRN PRN Reason: Constipation Butorphanol Tartrate (Stadol) 1 mg IVPUSH Q1H PRN PRN Reason: Pain Carboprost Tromethamine (Hemabate Ds) 250 mcg IM ASDIRECTED PRN PRN Reason: Post Hemorrhage Docusate Sodium (Colace) 100 mg PO BID PRN PRN Reason: Constipation Last Admin: 10/24/19 20:02 Dose: 100 mg Emollient Ointment (Lansinoh Hpa) 0 gm TOP ASDIRECTED PRN PRN Reason: Sore Nipples Last Admin: 10/23/19 11:54 Dose: 1 tube Tranexamic Acid 1,000 mg/ (Sodium Chloride) 110 mls @ 660 mls/hr IV ONETIME PRN PRN Reason: Bleeding Lactated Ringer's (Ringers, Lactated) 1,000 mls @ 150 mls/hr IV ASDIRECTED [facility] Last Admin: 10/23/19 05:30 Dose: 150 mls/hr Oxytocin/Sodium Chloride (Oxytocin 30 Unit/500 Ml-Ns) 30 unit in 500 mls @ 500 mls/hr IV TITRATE [facility] Last Admin: 10/23/19 08:26 Dose: 500 mls/hr Clindamycin Phosphate 900 mg/ (Premix) 50 mls @ 100 mls/hr IV Q8H [facility] Last Admin: 10/25/19 04:37 Dose: Not Given Ibuprofen (Motrin) 800 mg PO Q8H PRN PRN Reason: Pain Last Admin: 10/23/19 11:51 Dose: 800 mg Lidocaine HCl (Xylocaine 1%) 50 ml INJECT ONETIME PRN PRN Reason: Laceration repair Methylergonovine Maleate (Methergine) 0.2 mg IM ASDIRECTED PRN PRN Reason: Post Hemorrhage Misoprostol (Cytotec) 200 mcg PO ONETIME PRN PRN Reason: Post Hemorrhage Nalbuphine HCl (Nubain) 10 mg IVPUSH Q1H PRN PRN Reason: Pain (severe 7-10) Ondansetron HCl (Zofran) 4 mg IVPUSH Q6H PRN PRN Reason: Nausea/Vomiting Oxycodone HCl (Oxycodone) 5 mg PO Q2H PRN PRN Reason: Pain Sodium Chloride (Saline Flush) 10 ml FLUSH ASDIRECTED PRN PRN Reason: Keep Vein Open Sodium Chloride (Saline Flush) 2.5 ml FLUSH ASDIRECTED PRN PRN Reason: Keep Vein Open Sodium Chloride (Normal Saline) 10 ml IV ASDIRECTED PRN PRN Reason: IV Use Sterile Water (Sterile Water For Irrigation) 1,000 ml IRR ASDIRECTED PRN PRN Reason: delivery Last Admin: 10/23/19 12:25 Dose: 1,000 ml Witch Conchita (Tucks) 1 pad TOP ASDIRECTED PRN PRN Reason: comfort care Last Admin: 10/23/19 11:51 Dose: 1 tub Discontinued Medications Betamethasone Acet/Betameth SodPhos (Celestone Soluspan 6 Mg/Ml) 12 mg IM ONETIME ONE Stop: 10/23/19 01:09 Last Admin: 10/23/19 01:51 Dose: 12 mg Fentanyl (Sublimaze) Confirm Administered Dose 100 mcg .ROUTE .STK-MED ONE Stop: 10/23/19 05:16 Last Admin: 10/23/19 06:46 Dose: Not Given Ropivacaine (Naropin 0.2%) Confirm Administered Dose 100 mls @ as directed .ROUTE .STK-MED ONE Stop: 10/23/19 05:16 Last Admin: 10/23/19 06:46 Dose: Not Given Measles/Mumps/Rubella Vaccine Live (M-M-R Ii Vaccine) 0.5 ml SUBCUT .ONCE ONE Stop: 10/23/19 08:40 - Infant Interaction Infant Disposition, : [place] in Room with Family Infant Interaction: Holding Infant Feeding: Attempted ; Nursed Fair/Poor, Bottle Fed Infant - Recovery Exam Fundal Tone: Firm Fundal Level: 2 Fingerbreadths Below Umbilicus Fundal Placement: Midline Lochia Amount: Small Lochia Color: Rubra/Red Perineum Description: Intact, Minimal Bruising/Swelling Episiotomy/Laceration: None Bladder Status: Voiding Urinary Elimination: Voided - Exam General: Alert, Oriented Neck: Supple Lungs: Normal Respiratory Effort Cardiovascular: Regular Rate, Regular Rhythm GI/Abdominal Exam: Normal Bowel Sounds, Soft Extremities: Normal Inspection, Normal Range of Motion, Non-Tender, Normal Capillary Refill, Pedal Edema (trace) Skin: Warm, Dry, Intact Neurological: No New Focal Deficit Psy/Mental Status: Alert, Normal Affect, Normal Mood - Problem List & Annotations (1) Vaginal delivery SNOMED Code(s): 822496719 Code(s): O80 - ENCOUNTER FOR FULL-TERM UNCOMPLICATED DELIVERY Status: Acute Current Visit: Yes - Problem List Review Problem List Initiated/Reviewed/Updated: Yes - Assessment Assessment:: 34yo s/p at 36w2d, PPD#2 - Plan Plan:: Patient desires discharge home today. Reviewed discharge instructions. Baby had to stay until today given GBBS + status.
[2019-10-25] MEDS: Docusate Sodium 100 MG Cap PO PRN (08:26)
[2019-10-25] MEDS ORDERED: Measles, Mumps & Rubella Vaccine 0.5 ML SDV SUBCUT ONE (11:45)
[2019-10-25] MEDS: Ibuprofen 800 MG Tab PO PRN (12:25)
== END 2019-10-25 13:39 | disposition home or self-care (01) | DRG 807 ==
LOC: MW.OBCHECK 23:58 → MW.OB 10-23 00:09 → MW.OBCHECK 10-23 01:05 → MW.OB 10-23 01:05 → OBSVTOIN 10-23 08:25 → MW.OB 10-23 13:19
PROVIDERS: ADMIT Obstetrics & Gynecology; ATTEND Obstetrics & Gynecology
PROC: 10E0XZZ Delivery of Products of Conception, External Approach (ICD-10-PCS; principal; 2019-10-23)
PROC: 3E0R3BZ Introduction of Anesthetic Agent into Spinal Canal, Percutaneous Approach (ICD-10-PCS; 2019-10-23)
PROC: 00HU33Z Insertion of Infusion Device into Spinal Canal, Percutaneous Approach (ICD-10-PCS; 2019-10-23)
DX: O13.4 Gestational [pregnancy-induced] hypertension without significant proteinuria, complicating childbirth (principal); Z37.0 Single live birth; O60.14X0 Preterm labor third trimester with preterm delivery third trimester, not applicable or unspecified; O99.824 Streptococcus B carrier state complicating childbirth; Z3A.36 36 weeks gestation of pregnancy; Z90.49 Acquired absence of other specified parts of digestive tract; Z79.899 Other long term (current) drug therapy
CPT/HCPCS: 36415; 51702; 59025; 59409; 80053; 82803; 84550; 85014; 85018; 85027; 86592; 86850; 86900; 86901; 90707; A9270-GY; J0702; J2590; J3490; J7120